=== PATIENT | male | born 1955 | race Caucasian/White ===

== ENCOUNTER 2024-01-13 12:48 | Emergency (ER) | payer MEDICARE, OTHER, SELFPAY ==
[2024-01-13 12:53] VITALS: BP 150/96
--- NOTE | 2024-01-13 15:16 | ED.GENMED ---
History of Present Illness
General
Chief Complaint: Musculo-Skeletal Complaint
Source: patient and family
Time Seen by Provider: 01/13/24 15:07
Travel History
Have you had any contact with someone who has COVID-19?: No
Do you have any symptoms of coronavirus? Fever > 100 degrees, chills, cough, shortness of breath, sore throat, loss of taste or smell, muscle aches, or headache?: No
History of Present Illness
History of Present Illness:
68-year-old male presents emergency department with complaints of pain in the right AC area that occurred today while he was pulling of the line and it 'gave way' causing him to fall to the ground. Says he feels like he landed on his right shoulder
area. Since that time, he notes discomfort particular with certain movements of the right upper extremity. He denies pain elsewhere. He denies head injury or loss of conscious. He denies neck pain, numbness, tingling, hand wrist or elbow pain,
chest pain, shortness of breath, or other complaints.
Past History
Past History
ED Past Medical History: Hypercholesterolemia and Other (PMR)
ED Past Surgical History: None
Social History
Tobacco: Non-smoker
Alcohol: Occasional
Drug: None
Personal:
Employment: Employed
Phy Exam
Physical Exam
Physical Exam:
GENERAL: Alert , in no apparent distress
EYE: pupils equal and round
NECK: Supple, no significant adenopathy.
ENT: o/p clr, mmm.
CARDIAC: Regular rate and rhythm .
LUNGS: Clear breath sounds bilaterally, no acute respiratory distress, no wheezes/rales/rhonchi
ABDOMEN: Soft, without focal tenderness, no r/g
NEUROLOGICAL: Alert and oriented, no focal neuro deficits, sens intact to light touch
SKIN: Warm and dry, skin intact.
MUSCULOSKELETAL: No edema, well perfused. There is obvious deformity at R AC area with ttp, no tense 'tenting', no break in skin. No ttp of humerus, elbow/wrist etc. PUlses nl. Sens intact to light touch. Motor 5/5
PSYCH: Normal and appropriate interaction.
Course
Orders/Labs/Results
Orders:
Orders
01/13/24 12:59
CR Clavicle - Right Complete Urgent
Comment:
Reason For Exam: Injury
01/13/24 15:16
Sling Right-Treatment ONCE
Ketorolac [Toradol] 15 mg IV NOW STA
Oxycodone/Acetaminophen [Percocet 5/325] 1 tablet PO NOW STA
01/13/24 15:33
Ketorolac [Toradol] 15 mg IM NOW STA
Vital Signs
Initial and Last Documented VS:
Initial Vital Signs
Temp Pulse Resp BP Pulse Ox
97.8 F 99 18 150/96 99
01/13/24 12:53 01/13/24 12:53 01/13/24 12:53 01/13/24 12:53 01/13/24 12:53
Last Documented Vital Signs
Temp Pulse Resp BP Pulse Ox
97.8 F 99 18 150/96 99
01/13/24 12:53 01/13/24 12:53 01/13/24 12:53 01/13/24 12:53 01/13/24 12:53
*Critical Care Note
Total Time (30-74mins, 75-104mins- exclusive of procedures): Not Applicable
Update Note
Update Note:
Patient presents to the Emergency Department with _right shoulder discomfort status post fall
Number and Complexity of Problems Addressed at the Encounter
� Chronic conditions affecting care:
� Acute Exacerbation and/or Progression of Chronic Illness:
� Differential Diagnosis includes: But not limited to clavicle fracture, AC separation, humerus fracture, shoulder dislocation, etc. etc.
Amount and/or Complexity of Data to be Reviewed and Analyzed
� I performed an independent evaluation of and my interpretation is:
EKG:
CT:
Xrays:
Laboratory Studies:
Other: Read by me, AC separation, no other abnormalities noted
� Review of other/old records reveals:
� Clinical information was obtained by an independent historian:
� Prescriptions/Medications Considered but not given:
� Further testing considered but not performed:
Risk of Complications and/or Morbidity or Mortality of Patient Management
� Social determinants of health affecting care:
� Discussion with other providers (PCP, Hospitalists, Consultants, etc):
� Escalation of care including admission/observation vs risk of discharge considered: Patient with AC separation, no specific fracture or dislocation noted otherwise, will medicate for pain, sling, Ortho follow-up. No
neurological findings/abnormalities noted
ED Attending Note
-
Portions of this chart may have been created with voice recognition software.� Occasional wrong word or��sound alike� substitutions may have occurred due to the inherent limitations of voice recognition software.
Discharge Plan
Departure
Patient Disposition: Home (Routine Discharge)
Date of Disposition: 01/13/24
Time of Disposition: 15:20
Patient with high blood pressure during this ER visit?: Yes
Condition: Good
Discharge Problem:
AC separation
Instructions: shoulder, How to Use a Shoulder Sling, BLOOD PRESSURE
Prescriptions:
New
oxycodone 5 mg capsule
5 mg PO BID PRN (Reason: Pain) Qty: 11 0RF
Referrals:
Payam Hooper MD [Active] - Next open appointment
Alvin Bates MD [Family Provider] -
Activity Restrictions/Additional Instructions:
IF YOU DEVELOP NUMBNESS, TINGLING, INCREASING/NEW PAIN, SWELLING, CHEST PAIN, TROUBLE BREATHING, OR OTHER WORRISOME SIGNS, GO TO THE ER IMMEDIATELY!
Interventions
Interventions:
*Risk Screen - Suicide Last Done: 01/13/24 14:37
*General Assessment Last Done: 01/13/24 14:37
*Neglect/Abuse Screening Last Done: 01/13/24 14:37
ED- Fall Risk Assessment Last Done: 01/13/24 15:57
*ED COVID-19 Vaccine History Last Done: 01/13/24 14:37
*Nursing Disposition Last Done: 01/13/24 15:57
ED-Musculoskeletal Assessment Last Done: 01/13/24 14:37
Discharge Date and Time
Discharge Date/Time: 01/13/24 15:58
Print Language: MACEDONIAN
[2024-01-13] MEDS: TORADOL 15 MG IM (15:40)
[2024-01-13] MEDS: PERCOCET 5/325 1 TABLET PO (15:41)
== END 2024-01-13 15:58 | disposition home or self-care (01) ==
LOC: EMR 12:48
PROVIDERS: EMERGENCY PHYSICIAN Emergency Medicine; FAMILY PHYSICIAN Family Medicine
DX: S43.122A Dislocation of left acromioclavicular joint, 100%-200% displacement, initial encounter (principal); W19.XXXA Unspecified fall, initial encounter; R03.0 Elevated blood-pressure reading, without diagnosis of hypertension
CPT/HCPCS: 99284; 96372; 73000

== ENCOUNTER 2025-06-20 13:50 | Emergency (ER) | payer MEDICARE, OTHER, SELFPAY ==
[2025-06-20 14:08] VITALS: BP 139/80
[2025-06-20 14:12] LABS: Glucose - Point of Care 141 mg/dl (70-99)
--- NOTE | 2025-06-20 14:18 | ED.CVA ---
History of Present Illness
<Roland Steinberg PA-C - Last Filed: 06/20/25 17:24>
General
Chief Complaint: CVA/TIA Symptoms
Source: patient and spouse
Time Seen by Provider: 06/20/25 14:15
Onset of Stroke Symptoms
Onset of symptoms known: Yes
Date of onset of symptoms: 06/20/25
Time of onset of symptoms: 12:30
History of Present Illness
History of Present Illness:
69-year-old male with past medical history of hyperlipidemia presents to the emergency department with his for evaluation after he was eating lunch and noticed that he was unable to move the right side of his face as well as stating that the
right side of his tongue feels abnormal with symptom onset at 12:30 PM this afternoon. Symptoms have since continued. There are no other symptoms headache, visual changes, focal weakness or numbness, chest pain or shortness of breath or any other
concerns. Patient denies any history of similar. Social history and family history were both noncontributory. Patient denies any recent outdoor activity/tick bites or any recent fevers or illnesses.
Past History
<Roland Steinberg PA-C - Last Filed: 06/20/25 17:24>
Past History
ED Past Medical History: Hypercholesterolemia and Other (PMR)
ED Past Surgical History: None
Social History
Tobacco: Non-smoker
Alcohol: Occasional
Drug: None
Personal:
Living: with family
Employment: Employed
Review of Systems
<Roland Steinberg PA-C - Last Filed: 06/20/25 17:24>
Review of Systems
All Other Systems: ROS reviewed and negative except as documented in HPI and ROS
Phy Exam
<Roland Steinberg PA-C - Last Filed: 06/20/25 17:24>
Physical Exam
Physical Exam:
GENERAL: Alert , in no apparent distress
HEAD: Normocephalic atraumatic
EYE: conjunctiva clear
NECK: Supple, no bruit
ENT: o/p clr, mmm.
CARDIAC: Regular rate and rhythm
LUNGS: Clear breath sounds bilaterally, no acute respiratory distress, no wheezes/rales/rhonchi
NEUROLOGICAL: Alert and oriented, right-sided facial droop noted, patient is able to raise eyebrow and sensory along the right side of the face is equal compared to the left, no drift, no aphasia or dysarthria
SKIN: Warm and dry, skin intact.
MUSCULOSKELETAL: well perfused.
PSYCH: Normal and appropriate interaction.
Scores
<Roland Steinberg PA-C - Last Filed: 06/20/25 17:24>
NIH Stroke Score
Level of Consciousness: 0 - Alert
LOC Questions: 0-Answers both correctly
LOC Commands: 0-Performs both correctly
Best Horizontal Gaze: 0-Normal
Visual Brown: 0=Normal, no visual loss
Facial Palsy: 2=Partial paralysis
Motor - Right Arm: 0=No drift 10 seconds
Motor - Left Arm: 0=No drift 10 seconds
Motor - Right Le-No drift 5 seconds
Motor - Left Le-No drift 5 seconds
Limb Ataxia: 0-Absent
Sensation: 0-Normal
Best Language: 0-No aphasia
Dysarthria: 0-Normal
Extinction and Inattention: 0-No abnormality
NIH Total Score:: 2
Heart Failure Risk
Heart Failure Risk Score: Not Applicable
Heart Score for Chest Pain Patients
STEMI patient?: Not applicable
Withdrawal Assessment of Alcohol
Withdrawal Assessment Completed?: Not applicable
<Brock Perez MD - Last Filed: 06/20/25 14:29>
NIH Stroke Score
NIH Total Score:: 2
Course
<Roland Steinberg PA-C - Last Filed: 06/20/25 17:24>
Orders/Labs/Results
Orders:
Orders
06/20/25 14:15
Electrocardiogram (*1) Stat
Reason for Study: Other
Other Reason for Exam: neuro symptoms
CT HEAD STROKE ALERT W/o Cont Urgent
Comment:
Reason For Exam: facial droop, slurred speech
NEUROLOGY CONSULT Urgent
Consulting Provider: Alvin Santiago
Was physician already notified: Yes
Bedside Glucose- Treatment ONCE
Cardiac Monitoring- Treatment ONCE
EKG- Treatment ONCE
Pulse Ox/cont/shift [RESP] Stat
Quantity: 1
06/20/25 14:29
Complete Blood Count/With Diff Urgent
Comprehensive Metabolic Panel Urgent
Lyme Progressive Urgent
Comment: ADD ON
PTT Urgent
Prothrombin Time Urgent
06/20/25 15:01
Add On - Microbiology Urgent
Tests Added?: lyme progressive
06/20/25 15:49
CRP [C-Reactive Protein] Routine
Comment: May add to blood in lab
Erythrocyte Sed Rate Routine
Comment: may add to blood in lab
Ferritin Routine
Folate Routine
Comment: May add to blood in lab
TSH Reflex To Free T4 Routine
Comment: May add to blood in lab
Vitamin B12 Routine
Comment: May add to blood in lab or draw as routine
Abnormal Lab Results
06/20/25 06/20/25 06/20/25
14:11 14:29 15:49
Absolute Monos (auto) 0.7 H 10^3/uL
(0.1-0.6)
BUN 21 H mg/dl
(9-20)
Glucose 116 H mg/dl
(70-99)
Total Bilirubin 1.8 H mg/dl
(0.2-1.3)
Folate > 20.0 H ng/ml
(2.76-20)
POC Glucose 141 H mg/dl
(70-99)
06/20/25 14:29
06/20/25 14:29
Vital Signs
Initial and Last Documented VS:
Initial Vital Signs
Temp Pulse Resp BP Pulse Ox
98.1 F 65 20 139/80 97
06/20/25 14:08 06/20/25 14:08 06/20/25 14:08 06/20/25 14:08 06/20/25 14:08
Last Documented Vital Signs
Temp Pulse Resp BP Pulse Ox
98.1 F 74 16 104/65 98
06/20/25 14:08 06/20/25 16:02 06/20/25 16:02 06/20/25 16:02 06/20/25 16:02
<Brock Perez MD - Last Filed: 06/20/25 14:29>
Orders/Labs/Results
Orders:
Orders
06/20/25 14:15
Electrocardiogram (*1) Stat
Reason for Study: Other
Other Reason for Exam: neuro symptoms
CT HEAD STROKE ALERT W/o Cont Urgent
Comment:
Reason For Exam: facial droop, slurred speech
NEUROLOGY CONSULT Urgent
Consulting Provider: Alvin Santiago
Was physician already notified: Yes
Bedside Glucose- Treatment ONCE
Cardiac Monitoring- Treatment ONCE
EKG- Treatment ONCE
Pulse Ox/cont/shift [RESP] Stat
Quantity: 1
06/20/25 14:29
Complete Blood Count/With Diff Urgent
Comprehensive Metabolic Panel Urgent
Lyme Progressive Urgent
Comment: ADD ON
PTT Urgent
Prothrombin Time Urgent
06/20/25 15:01
Add On - Microbiology Urgent
Tests Added?: lyme progressive
06/20/25 15:49
CRP [C-Reactive Protein] Routine
Comment: May add to blood in lab
Erythrocyte Sed Rate Routine
Comment: may add to blood in lab
Ferritin Routine
Folate Routine
Comment: May add to blood in lab
TSH Reflex To Free T4 Routine
Comment: May add to blood in lab
Vitamin B12 Routine
Comment: May add to blood in lab or draw as routine
Abnormal Lab Results
06/20/25 06/20/25 06/20/25
14:11 14:29 15:49
Absolute Monos (auto) 0.7 H 10^3/uL
(0.1-0.6)
BUN 21 H mg/dl
(9-20)
Glucose 116 H mg/dl
(70-99)
Total Bilirubin 1.8 H mg/dl
(0.2-1.3)
Folate > 20.0 H ng/ml
(2.76-20)
POC Glucose 141 H mg/dl
(70-99)
06/20/25 14:29
06/20/25 14:29
Vital Signs
Initial and Last Documented VS:
Initial Vital Signs
Temp Pulse Resp BP Pulse Ox
98.1 F 65 20 139/80 97
06/20/25 14:08 06/20/25 14:08 06/20/25 14:08 06/20/25 14:08 06/20/25 14:08
Last Documented Vital Signs
Temp Pulse Resp BP Pulse Ox
98.1 F 74 16 104/65 98
06/20/25 14:08 06/20/25 16:02 06/20/25 16:02 06/20/25 16:02 06/20/25 16:02
<Roland Steinberg PA-C - Last Filed: 06/20/25 17:24>
MDM/Problems Addressed
Differential Diagnosis Includes:
[place] Palsy
CVA/TIA
Malignancy
CN palsy
Lyme
MDM/Problems Addressed:
69 [id number] presenting to the ER with acute onset of right sided facial droop. No other focal neurologic deficits noted. Both patient and feel that his speech is normal. Stroke alert had been activated from triage. Suspect CVA/TIA
versus Prescott's palsy. Neurology in the emergency department to evaluate patient. Further treatment plan and disposition remain pending.
<Roland Steinberg PA-C - Last Filed: 06/20/25 17:24>
*Radiology
Radiology exam reviewed: radiology read reviewed
*Pulse Oximetry
SaO2: 97
Oxygen Mode of Delivery: Room air
Patient hypoxic: no
*Handbag Framer Interpretation
Rate: normal
Heart Rate: 76
Rhythm: sinus
*Critical Care Note
Total Time (30-74mins, 75-104mins- exclusive of procedures): Not Applicable
<Roland Steinberg PA-C - Last Filed: 06/20/25 17:24>
Patient Management
Discussion with other providers: Asic Design Engineer
Escalation/DeEscalation of care consider admission/obs:
Patient seen by neurology who feels it is most likely related Prescott's palsy. Will treat with high-dose prednisone for the next week. Patient to follow-up with primary care provider. Aware of return precautions to the ER.
ED Attending Note
<Roland Steinberg PA-C - Last Filed: 06/20/25 17:24>
-
Portions of this chart may have been created with voice recognition software.� Occasional wrong word or��sound alike� substitutions may have occurred due to the inherent limitations of voice recognition software.
<Brock Perez MD - Last Filed: 06/20/25 14:29>
ED Attending Note
Patient seen and examined by attending physician: Yes
ED Attending Note:
I have seen and evaluated the patient with a [id number] encounter. I have spoken to the advance practicer provider and involved in the medical history, the physical exam, medical decision making.
Evaluation and management service: agree unless noted differently below.
Results interpretation: agree unless noted differently below.
Focused HPI: 69-year-old male with a past medical history of GERD, hyperlipidemia presents to the ER with his for evaluation of facial droop. Patient reports onset of symptoms while he was eating lunch today at around 12:30 PM and they have
been constant since that time. He reports a droop in the right side of his face. He also reports an odd sensation in the right side of his tongue. Mild slurred speech. He has not noticed any weakness or numbness in extremities. No change in his
vision. No similar symptoms in the past. Not on blood thinners.
Physical exam: Awake and alert not in distress. Vital signs are all within acceptable range. He has a right sided facial droop that appears to spare the forehead. Moving all extremities without motor or sensory deficit. Speech is fluid no
dysarthria or aphasia.
Medical Decision Makin-year-old male presents with a facial droop acute onset at 12:30 PM. Stroke alert was called in triage, patient met by neurology at bedside. Overall suspect this may be a Prescott's palsy although he did seem to spare the
forehead which at least raises the question of stroke. Will proceed with CT head, CTA head and neck, CT perfusion, usual labs and EKG.
Discharge Plan
Departure
Patient Disposition: Home (Routine Discharge)
Date of Disposition: 06/20/25
Time of Disposition: 15:53
Patient with high blood pressure during this ER visit?: Yes
Discharge Problem:
Prescott's palsy
Instructions: Prescott's Palsy (DC)
Prescriptions:
New
prednisone 20 mg tablet
60 mg PO DAILY 7 Days Qty: 21 0RF
No Action
oxycodone 5 mg capsule
5 mg PO BID PRN (Reason: Pain) Qty: 11 0RF
Referrals:
Alvin Bates MD [Family Provider, Family Practice]
Interventions
Interventions:
*Risk Screen - Suicide Last Done: 06/20/25 14:08
*General Assessment Last Done: 06/20/25 14:08
*Neglect/Abuse Screening Last Done: 06/20/25 14:08
*ED- Fall Risk Assessment Last Done: 06/20/25 15:00
*ED COVID-19 Vaccine History Last Done: 06/20/25 15:00
*ED Influenza Vaccine History Last Done: 06/20/25 15:00
*Nursing Disposition Last Done: 06/20/25 16:02
ED- Pulmonary Assessment Last Done: 06/20/25 15:00
ED- Neurological Assessment Last Done: 06/20/25 15:00
ED- Cardiac Assessment Last Done: 06/20/25 15:00
ED Swallowing Screen Last Done: 06/20/25 15:00
Discharge Date and Time
Discharge Date/Time: 06/20/25 16:02
Print Language: ANDORRAN
--- NOTE | 2025-06-20 14:22 | CON.NEURO4 ---
Addendum entered and electronically signed by Alvin Santiago MD 06/20/25 15:07:
Studies reviewed.
I have personally examined the patient. I reviewed and agree with the WIRE WINDING MACHINE TENDER's Note.
My addenda:
Awake, alert, interactive. No acute distress.
Speech intact. Decreased right-sided facial movement compared with the contralateral side especially reduced eye blink
Follows 2-step requests w/o difficulty. No tremor.
Extra-ocular movements grossly intact.
Hearing intact to normal conversational volume.
Normal UE movements bilaterally.
Neck: full ROM.
Chest: no dyspnea
Heart: no JVD
Ext: (-) Clubbing, (-) Cyanosis, (-) Edema
IMPRESSIONS/RECOMMENDATIONS:
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
Check blood work potential metabolic causes
Initiate prednisone 60 mg daily with decrements by 10 mg daily until discontinued
Outpatient physical therapy evaluation and treatment
D/W patient / family / nursing
All questions answered.
Will continue to follow as needed.
Original Note:
Documented by User: Julia Singer NP 06/20/25 14:54
Consultation - Neurology 4
-
CONSULTING PHYSICIAN: Alvin Santiago MD
REFERRING PHYSICIAN: ER/Roland Steinberg PA-C
DICTATED BY: MARCUS Will
DATE/TIME OF REQUEST: 06/20/25
DATE/TIME OF CONSULTATION: 06/20/25
Reason for Consultation: Stroke Alert
History of Present Illness:
This is a 69-year-old right-handed male who has presented to the hospital with report of right facial drooping. Patient reports that he was in his usual state today eating lunch at 1230 when suddenly he noticed that he was having difficultly
chewing an apple on the right side of his mouth. He went and looked in the mirror and noticed that his right face appeared droopy. He called his PCP who referred him to the ER for evaluation. CT head was obtained on arrival and is negative for any
acute abnormalities. He denies any headache, dizziness, vision changes, numbness, and weakness. NIHSS is 2 for partial right facial paralysis. Exam is notable for decreased right eye blinking. He is not a candidate for TNK/IAT due to low NIHSS and
exam is supportive of Prescott's palsy. He denies any recent rash or illness. He was weaned off of prednisone for PMR successfully in 07/2024.
Past Medical History: Polymyalgia rheumatica, HLD, GERD, Barretts esophagus
Surgical History: Mohs surgery left face 04/2025
Family History: Brother- stroke.
Social History: Occasional alcohol. Denies tobacco and illicit drug use.
Allergies: No known allergies.
Home Medications: See below.
Review of Symptoms:
Patient denies any fever, headache, chest pain, shortness of breath, GI or symptoms.
�Per the HPI.�All systems are reviewed negative except above.
Physical Exam:
The patient is afebrile, abdomen is nondistended, breathing is unlabored, skin is warm and dry, no edema.
NIH Stroke Scale:
I performed the NIH stroke scale on the patient on 06/20/25 at 1415. The patient scored 3 points on the NIH stroke scale assessment, which were assigned as follows: See below.
Neurologic Examination:
The patient is awake, alert and oriented x 3. He is able to follow commands and answer questions appropriately. There is no aphasia. There is mild dysarthria. On cranial nerve assessment, pupils are 3 mm bilateral, round and reactive to light and
accommodation. Visual brown are full. Extraocular movements are intact. There is partial right facial drooping. Reduced ability to close right eyelid, reduced right eye blinking. Hearing is intact bilaterally to normal conversation volume. Tongue
palate and uvula are midline. Sternocleidomastoid strengths are full bilaterally. Motor strengths are 5/5 bilateral upper and lower extremities on medical research [place] scale. There is no drift or involuntary movement noted. Deep tendon reflexes
are 2+ bilateral upper and lower extremities and Babinski is absent bilaterally. There was no extinction noted on double simultaneous stimulation. Coordination is intact by finger to nose bilaterally.
Lab Results: See below.
Neuro Imaging:
1. CT Head 06/20/25: No acute intracranial abnormality. ASPECT score: 10.
Differentials for the patient's presentation include:
1. Right facial drooping; exam is consistent with Prescott's palsy.
Patient has the following risk factors for their symptoms: None.
IV Tenecteplase/IAT candidacy: He is not a candidate for TNK/IAT due to low NIHSS and exam is supportive of Prescott's palsy.
Recommendations:
-Would start a prednisone taper: 60mg, 50mg, 40mg, 30mg, 20mg, 10mg, stop.
-Checking blood work for metabolic abnormalities and Lyme.
-If symptoms fail to improve over several weeks, would consider MRI brain imaging at that point.
Discussed patient care with: Dr. Santiago, the patient, patient's spouse
Vital Signs and Labs
-
Vital Signs and Labs:
Vital Signs
Temp Pulse Resp BP Pulse Ox
98.1 F 65 20 139/80 97
06/20/25 14:08 06/20/25 14:08 06/20/25 14:08 06/20/25 14:08 06/20/25 14:18
Medications
-
Home Medications
�Medication �Instructions �Recorded
oxycodone 5 mg capsule 5 mg PO BID PRN Pain #11 caps 01/13/24
NIH Stroke Score
Subsequent NIH Scale
Date of Subsequent NIH Scale: 06/20/25
Time of Subsequent NIH Scale: 14:15
NIH Stroke Score
Level of Consciousness: 0 - Alert
LOC Questions: 0-Answers both correctly
LOC Commands: 0-Performs both correctly
Best Horizontal Gaze: 0-Normal
Visual Brown: 0=Normal, no visual loss
Facial Palsy: 2=Partial paralysis
Motor - Right Arm: 0=No drift 10 seconds
Motor - Left Arm: 0=No drift 10 seconds
Motor - Right Le-No drift 5 seconds
Motor - Left Le-No drift 5 seconds
Limb Ataxia: 0-Absent
Sensation: 0-Normal
Best Language: 0-No aphasia
Dysarthria: 1-Mild slurring
Extinction and Inattention: 0-No abnormality
NIH Total Score:: 3
Modified [place] (mRS) Score
Modified [place] Scale (mRS): No significant disability. Able to carry out usual activities.
Score: 1
Alteplase Contraindication
Inclusion and Exclusion criteria reviewed: Yes

Documented by User: Alvin Santiago MD 06/20/25 14:55
NIH Stroke Score
NIH Stroke Score
NIH Total Score:: 3
Modified [place] (mRS) Score
Score: 1
[2025-06-20 14:40] VITALS: BP 124/75
[2025-06-20 14:47] LABS: Hematocrit 49.5 % (39.0-52.0); Hemoglobin 16.9 g/dL (13.0-18.0); Mean Corp Hgb Conc. 34.1 g/dL (33.0-37.0); Mean Corpuscular Volume 85.9 fL (80.0-94.0); Nucleated Red Blood Cells % 0 % (-); Platelet Count 252 10^3/uL (130-400); Red Cell Dist. Width 12.6 % (11.5-14.5)
[2025-06-20 14:59] LABS: INR 0.98; PT 13.5 Sec (11.4-14.6)
[2025-06-20 15:00] LABS: APTT 31.3 Sec (23.4-35.0)
[2025-06-20 15:05] LABS: ALT (SGPT) 46 U/L (0-50); AST (SGOT) 32 U/L (17-59); Albumin 5.0 g/dl (3.5-5.0); Alkaline Phosphatase 86 U/L (38-126); Blood Urea Nitrogen 21 mg/dl (9-20); Calcium 9.6 mg/dl (8.4-10.2); Carbon Dioxide 24 mmol/L (22-30); Chloride 107 mmol/L (98-107); Glucose 116 mg/dl (70-99); Potassium 4.2 mmol/L (3.5-5.1); Sodium 139 mmol/L (135-145); Total Protein 8.0 g/dl (6.3-8.2); eGFR > 60.00
[2025-06-20 15:52] VITALS: BP 104/68
[2025-06-20 16:02] VITALS: BP 104/65
[2025-06-20 16:14] LABS: C-Reactive Protein < 5.00 mg/L (0.0-10.00)
[2025-06-20 16:49] LABS: Ferritin 256.0 ng/ml (17.9-464.0)
[2025-06-20 17:20] LABS: Folate > 20.0 ng/ml (2.76-20); Vitamin B12 565 pg/ml (239-931)
[2025-06-21 13:53] LABS: Lyme Antibody Screen, EIA Negative (Negative)
== END 2025-06-20 16:02 | disposition home or self-care (01) ==
LOC: EMR 13:50
PROVIDERS: CONSULT PHYSICIAN Psychiatry & Neurology Neurology; EMERGENCY PHYSICIAN Emergency Medicine; FAMILY PHYSICIAN Family Medicine
DX: G51.0 Bell's palsy (principal); E78.00 Pure hypercholesterolemia, unspecified; M35.3 Polymyalgia rheumatica; Z82.3 Family history of stroke
CPT/HCPCS: 99284; 70450; 80053; 82607; 82728; 82746; 82962; 84443; 85025; 85610; 85652; 85730; 86140; 86618; 93005

== ENCOUNTER 2025-07-13 06:54 | Outpatient (RCR) | payer MEDICARE, OTHER, SELFPAY | END 2025-07-13 23:59 | disposition home or self-care (01) | LOC: RPT 06:54 | PROVIDERS: ATTENDING PHYSICIAN Family Medicine | DX: G51.0 Bell's palsy (principal); Z73.6 Limitation of activities due to disability | CPT/HCPCS: 97112; 97140; 97162; 97530 ==